=== PATIENT | male | born 1990 | race Caucasian/White ===

== ENCOUNTER 2018-09-16 20:59 | Emergency (ER) | payer BC ==
--- NOTE | 2018-09-16 21:47 | ER Document Report ---
ED General - General Chief Complaint: Sore Throat Stated Complaint: FLU LIKE SYMPTOMS Time Seen by Provider: 09/16/18 21:24 Notes: Patient is a 27-year-old male who presents to the emergency department with a chief complaint of a sore throat. He has had this sore throat for the past 2 weeks. He is now having associated ear pain on the right side. He has not seen a primary care doctor for this issue. He states it hurts to eat or drink. He has been taking [id number] cold and flu medications, with no relief. He states nothing makes the pain better. He denies any difficulty breathing. TRAVEL OUTSIDE OF THE [place] IN LAST 30 DAYS: No - Related Data Allergies/Adverse Reactions: No Known Allergies Allergy (Unverified 09/16/18 21:24) Past Medical History - Social History Smoking Status: Never Smoker Frequency of alcohol use: None Drug Abuse: None Family History: Reviewed & Not Pertinent Patient has suicidal ideation: No Patient has homicidal ideation: No Renal/ Medical History: Denies: Hx Peritoneal Dialysis Review of Systems - Review of Systems Notes: REVIEW OF SYSTEMS: CONSTITUTIONAL : Denies recent illness. Denies recent unintentional weight loss. Denies fever, chills, or sweats. EENT: See HPI CARDIOVASCULAR: Denies chest pain. RESPIRATORY: Denies shortness of breath, cough, congestion, difficulty breathing, or wheezing. GASTROINTESTINAL: Denies nausea, vomiting, and diarrhea. Denies abdominal pain. Denies constipation. GENITOURINARY: Denies difficulty urinating, burning, blood in urine, urgency or frequency. MUSCULOSKELETAL: Denies neck and back pain. Denies joint pain or swelling. SKIN: Denies rash, itchiness, or lesions HEMATOLOGIC : Denies easy bruising or bleeding. LYMPHATIC: Denies swollen, painful, enlarged glands. NEUROLOGICAL: Denies no numbness or tingling denies weakness. Denies headache. Denies altered mental status. Denies alteration in speech. PSYCHIATRIC: Denies stress, anxiety, alteration in sleep patterns, or depression. All other systems reviewed and negative. Physical Exam - Vital signs Vitals: Temp Pulse Resp BP Pulse Ox 98.8 F 97 16 142/79 H 97 09/16/18 21:03 09/16/18 21:03 09/16/18 21:03 09/16/18 21:03 09/16/18 21:03 - Notes Notes: PHYSICAL EXAMINATION: GENERAL: Appears well, healthy, well-nourished, no acute distress. HEAD: Normocephalic, atraumatic. EYES: PERRL, conjunctiva normal, all extraocular movements intact, sclera nonicteric ENT: Moist mucous membranes. Erythema noted to oropharynx. Erythema noted to right tympanic membrane. NECK: Supple, no noticeable swelling, redness, rash. Normal range of motion. LUNGS: Equal breath sounds bilaterally and clear to auscultation. No wheezes rales or rhonchi. CARDIOVASCULAR: S1-S2, regular rate, regular rhythm. Radial pulses 2+, normal. ABDOMEN: Normoactive bowel sounds. Soft, nontender, no guarding, no rebound tenderness, and no masses palpated. EXTREMITIES: Normal strength and range of motion, no pitting or edema. No cyanosis. NEUROLOGICAL: Moves all extremities upon command. Strength 5/5 in all extremities. PSYCH: Normal mood, normal affect. SKIN: Warm, dry. No rash, lesions, ulcerations noted. Normal skin turgor. Course - Re-evaluation Re-evalutation: 09/16/18 22:24 Patient's rapid strep test is negative. He does have erythema noted to his right ear and erythema to his oropharynx. Based of these findings and his symptoms, I will start him on amoxicillin. I do not suspect he has Howard's a ngina, peritonsillar abscess, or mastoiditis at this time. Verbal discharge instructions were given to the patient. He verbalized understanding. He is stable for discharge. - Vital Signs Vital signs: Temp Pulse Resp BP Pulse Ox 98.8 F 87 18 136/66 H 98 09/16/18 22:50 09/16/18 22:50 09/16/18 22:50 09/16/18 22:50 09/16/18 22:50 Discharge - Discharge Clinical Impression: Pharyngitis Qualifiers: Pharyngitis/tonsillitis etiology: unspecified etiology Qualified Code(s): J02.9 - Acute pharyngitis, unspecified Condition: Stable Disposition: HOME, SELF-CARE Instructions: Sore Throat ([facility]) Additional Instructions: You have been seen in the emergency department for sore throat. It is unsure as to what is the cause of your sore throat. Since you have had the symptoms for the past 2 weeks, he will be put on antibiotics to help with your throat. Even if you feel better, please finish your antibiotics. Please see your primary care doctor in the next 3-4 days. If you develop a fever greater than 100.4 F, have worsening symptoms, have difficulty breathing, or have any other symptoms that are worrisome to you, these return to the emergency department. Prescriptions: Amoxicillin Trihydrate [Amoxil 875 mg Tablet] 1 tab PO BID #20 tablet
[2018-09-16] MEDS ORDERED: AMOXICILLIN TRIHYDRATE 500 MG CAPSULE PO ONE (22:25)
[2018-09-16 22:51] VITALS: BP 136/66
== END 2018-09-16 22:51 | disposition home or self-care (01) ==
LOC: ER 20:59
DX: J02.9 Acute pharyngitis, unspecified (principal)
CPT/HCPCS: 87070; 87880; 99283